=== PATIENT | female | born 1965 | race Caucasian/White ===

== ENCOUNTER 2017-02-04 18:27 | Emergency (ER) | payer BC, OTHER ==
[~2017-02-04] VITALS: Ht 170.2 cm; Wt 105.4 kg
[~2017-02-04 18:27] MED LIST: DILA2TAB4 PO; GABA100C4 PO; LEVO125T3 PO; NAPR250T57 PO; OXYC20 PO; TRAM50TA PO; XANA2TAB2 PO
[2017-02-04 18:37] VITALS: BP 150/89; PULSE 106; RESP 20; RESP 22; TEMP 98.4; O2SAT 97
[2017-02-04] MEDS ORDERED: CYMB30CA PO (18:56)
[2017-02-04] MEDS ORDERED: LEVO125T4 PO (18:56)
[2017-02-04] MEDS ORDERED: REGL5TAB PO (18:56)
[2017-02-04] MEDS ORDERED: OXYC30TA PO (18:56)
[2017-02-04] MEDS ORDERED: XANA2TAB2 PO (18:56)
--- NOTE | 2017-02-04 19:13 | PD ---
HPI Chief Complaint: Fall Time Seen by Provider: 18:58 Travel History International Travel<30 days: No Contact w/Intl Traveler<30days: No Traveled to known affect area: No History of Present Illness HPI Patient's 51-year-old female presenting to the emergency department for evaluation of neck, right shoulder, right rib pain after she fell down 6 steps in her home last night. Patient is unsure if she hit her head. Denies any loss of consciousness. Patient was able to get herself up off the floor after she fell. She states that she closed her eyes and tumbled. Patient states it hurts to take a deep breath, she reports laying in bed all day. Patient reports the pain as a 9 out of 10, she is aching and sore. Patient did drive herself to the emergency department today. PFSH Past Medical History Arthritis: Yes Anxiety: Yes Depression: Yes Heart Rhythm Problems: No Cancer: No Cardiovascular Problems: Yes High Cholesterol: No Congestive Heart Failure: No Diminished Hearing: No Gastrointestinal Disorders: Yes (GALL STONES) GERD: No Genitourinary: No Hiatal Hernia: No Hypertension: Yes Musculoskeletal: Yes (CERVICAL,LUMBAR DAMAGED) Neurologic: No Psychiatric: Yes Reproductive: Yes Respiratory: Yes Thyroid Disease: Yes Ulcer: No ?: Not Menopausal: Yes : 1 Para: 1 Past Surgical History Abdominal Surgery: No Cardiac Surgery: No Ear Surgery: No Endocrine Surgery: No Eye Surgery: No Genitourinary Surgery: No Gynecologic Surgery: Yes (90% OF CERVIX REMOVED) Oral Surgery: No Thoracic Surgery: No Other Surgery: Yes (CERVICAL POLYPS) Social History Alcohol Use: No Tobacco Use: Yes (1 PPD) Substance Use: No Allergies-Medications (Allergen,Severity, Reaction): Coded Allergies: Penicillin (Verified Allergy, Intermediate, 02/04/17) Reported Meds & Prescriptions Reported Meds & Active Scripts Active Reported Reglan (Metoclopramide HCl) 5 Mg Tab 5 Mg PO TIDAC Cymbalta DR (Duloxetine HCl) 30 Mg Capdr 30 Mg PO DAILY Oxycodone (Oxycodone HCl) 30 Mg Tab 30 Mg PO Q6HR Levothyroxine (Levothyroxine Sodium) 125 Mcg Tab 125 Mcg PO DAILY Xanax (Alprazolam) 2 Mg Tab 2 Mg PO BID Review of Systems Except as stated in HPI: all other systems reviewed are Neg Musculoskeletal: Positive: Myalgias, Arthralgias, Pain Neurologic: No: Weakness, Dizziness, Syncope, Change in Mentation, Paresthesia , Sensory Disturbance Physical Exam Narrative GENERAL: Obese, well-developed, well-nourished, alert female. SKIN: Focused skin assessment warm/dry. HEAD: Atraumatic. Normocephalic. EYES: Pupils equal and round. No scleral icterus. No injection or drainage. ENT: No nasal bleeding or discharge. Mucous membranes pink and moist. NECK: Trachea midline. No JVD. CARDIOVASCULAR: Regular rate and rhythm. No murmur appreciated. RESPIRATORY: No accessory muscle use. Clear to auscultation. Breath sounds equal bilaterally. GASTROINTESTINAL: Abdomen soft, non-tender, nondistended. Hepatic and splenic margins not palpable. MUSCULOSKELETAL: No obvious deformities. No clubbing. No cyanosis. No edema. Tenderness to palpation on right lower anterior rib, tenderness to palpation paraspinal musculature in the cervical region on the right side. Full range of motion in all 4 extremities. Patient is neurovascularly intact. NEUROLOGICAL: Awake and alert. No obvious cranial nerve deficits. Motor grossly within normal limits. Normal speech. PSYCHIATRIC: Appropriate mood and affect; insight and judgment normal. Data Data Last Documented VS Vital Signs Date Time Temp Pulse Resp B/P Pulse Ox O2 Delivery O2 Flow Rate FiO2 02/04/17 18:37 98.4 106 20 150/89 97 Orders Chest, Pa & Lat (02/04/17 ) Ct Cerv Spine W/O Contrast (02/04/17 ) Ct Brain W/O Iv Contrast(Rout) (02/04/17 ) Shoulder, Complete (>2vws) (02/04/17 ) Ketorolac Inj (Toradol Inj) (02/04/17 20:30) Dexamethasone Inj (Decadron Inj) (02/04/17 20:30) MDM Medical Decision Making Medical Screen Exam Complete: Yes Emergency Medical Condition: Yes Interpretation(s) Last Impressions Shoulder X-Ray 02/04/17 0000 Signed Impressions: Service Date/Time: Saturday, February 04, 2017 19:21 - CONCLUSION: Normal right shoulder radiographs. Latrell Borges MD Head CT 02/04/17 0000 Signed Impressions: Service Date/Time: Saturday, February 04, 2017 19:29 - CONCLUSION: Negative noncontrast head CT. Latrell Borges MD Chest X-Ray 02/04/17 0000 Signed Impressions: Service Date/Time: Saturday, February 04, 2017 19:17 - CONCLUSION: No evidence of acute cardiopulmonary disease. Latrell Borges MD Cervical Spine CT 02/04/17 0000 Signed Impressions: Service Date/Time: Saturday, February 04, 2017 19:29 - CONCLUSION: 1. No fracture or subluxation of the cervical spine. 2. Moderate size, age-indeterminate posterior disc protrusion at C6/C7 causing moderate spinal stenosis. Latrell Borges MD Vital Signs Date Time Temp Pulse Resp B/P Pulse Ox O2 Delivery O2 Flow Rate FiO2 02/04/17 18:37 98.4 106 20 150/89 97 Differential Diagnosis Fracture versus sprain versus strain versus discogenic pain versus other Narrative Course Patient is a 51-year-old female presenting to the emergency department in a private vehicle that she drove herself for evaluation of pain to her right shoulder, right rib cage, neck. Patient takes oxycodone 30 mg 4 times daily, she's been taking this as she normally would. Imaging ordered and pending. Patient is neurologically intact. CT scan of the brain is normal CT scan of the cervical spine shows no fracture or subluxation at this cervical spine, moderate size age indeterminate posterior disc protrusion at C6 to C7 causing moderate spinal stenosis. Discussed with my attending physician, patient would benefit from anti-inflammatory medication and a short course of steroids. She needs to follow up with her primary doctor. Confirmed with patient that she doesn't fact have a primary doctor to follow-up with. No neurological signs at this time. Patient states that she cannot take anti- inflammatories because of GI upset, she states that meloxicam cause her to have tingling feeling in her legs. She will be given dose of Toradol now. Patient verbalizes understanding of follow-up instructions. Patient is stable for discharge. Diagnosis Primary Impression: Fall (on) (from) other stairs and steps, initial encounter Additional Impressions: Muscle strain Muscle spasm Shoulder pain Qualified Code: M25.511 - Right shoulder pain, unspecified chronicity Referrals: Primary Care Physician Patient Instructions: General Instructions, Muscle Spasm (ED), Muscle Strain ( GEN) Additional Instructions: Follow-up with her primary doctor Medications as directed Return to emergency department for any new or worsening symptoms Avoid bed rest, avoid exacerbating activities, apply warm heat to affected areas Med/Other Pt SpecificInfo: Prescription(s) given Scripts Prednisone 50 Mg Tab50 Mg PO DAILY #5 TAB Ref 0 Prov:Kim Campbell 02/04/17 Disposition: 01 DISCHARGE HOME Condition: Stable Kim Campbell Feb 04, 2017 19:13
--- NOTE | 2017-02-04 19:30 | RADHPO ---
EXAM DATE/TIME: 02/04/2017 19:17 [facility] COMPARISON: No previous studies available for comparison. INDICATIONS : Chest and rib pain post fall. MEDICAL HISTORY : None. SURGICAL HISTORY : None. ENCOUNTER: Initial ACUITY: 1 day PAIN SCORE: 10/10 LOCATION: Bilateral chest FINDINGS: PA and lateral views of the chest demonstrate the lungs to be symmetrically aerated without evidence of mass, infiltrate or effusion. The cardiomediastinal contours are unremarkable. Osseous structure s are intact. CONCLUSION: No evidence of acute cardiopulmonary disease. Latrell Borges MD on February 04, 2017 at 19:27 Board Certified Radiologist. This report was verified electronically.
--- NOTE | 2017-02-04 19:39 | RADHPO ---
EXAM DATE/TIME: 02/04/2017 19:21 [facility] COMPARISON: No previous studies available for comparison. INDICATIONS : Right shoulder pain post fall. MEDICAL HISTORY : None. SURGICAL HISTORY : None. ENCOUNTER: Initial ACUITY: 1 day PAIN SCORE: 10/10 LOCATION: Right shoulder FINDINGS: Multiple view examination of the right shoulder demonstrates no evidence of fracture or dislocation. The glenohumeral and acromioclavicular joints are maintained. There is normal range of motion betwe en internal and external rotation. Bony mineralization is normal. CONCLUSION: Normal right shoulder radiographs. Latrell Borges MD on February 04, 2017 at 19:36 Board Certified Radiologist. This report was verified electronically.
--- NOTE | 2017-02-04 19:53 | RADHPO ---
EXAM DATE/TIME: 02/04/2017 19:29 [facility] COMPARISON: No previous studies available for comparison. INDICATIONS : Fall last night, cephalgia and right neck pain. RADIATION DOSE: 65.95 CTDIvol (mGy) MEDICAL HISTORY : Hypertension. SURGICAL HISTORY : None. ENCOUNTER: Initial ACUITY: 2 days PAIN SCALE: 5/10 LOCATION: Bilateral cranial TECHNIQUE: Multiple contiguous axial images were obtained of the head. Using automated exposure control and adj ustment of the mA and/or kV according to patient size, radiation dose was kept as low as reasonably a chievable to obtain optimal diagnostic quality images. FINDINGS: CEREBRUM: The ventricles are normal for age. No evidence of midline shift, mass lesion, hemorrhage or acute in farction. No extra-axial fluid collections are seen. POSTERIOR FOSSA: The cerebellum and brainstem are intact. The 4th ventricle is midline. The cerebellopontine angle i s unremarkable. EXTRACRANIAL: The visualized portion of the orbits is intact. SKULL: The calvaria is intact. No evidence of skull fracture. CONCLUSION: Negative noncontrast head CT. Latrell Borges MD on February 04, 2017 at 19:50 Board Certified Radiologist. This report was verified electronically.
--- NOTE | 2017-02-04 20:00 | RADHPO ---
EXAM DATE/TIME: 02/04/2017 19:29 [facility] COMPARISON: No previous studies available for comparison. INDICATIONS : Fall last night, cephalgia and right neck pain. RADIATION DOSE: 35.18 CTDIvol (mGy) MEDICAL HISTORY : Hypertension. SURGICAL HISTORY : None. ENCOUNTER: Initial ACUITY: 2 days PAIN SCALE: 7/10 LOCATION: Right neck TECHNIQUE: Volumetric scanning of the cervical spine was performed. Multiplanar reconstructions in the sagittal, coronal and oblique axial planes were performed. Using automated exposure control and adjustment o f the mA and/or kV according to patient size, radiation dose was kept as low as reasonably achievable to obtain optimal diagnostic quality images. FINDINGS: VERTEBRAE: Normal vertebral body height. ALIGNMENT: No evidence of subluxation. C2-C3: The bony spinal canal is normal in size. No evidence of disc bulge or herniation. The neural forami na are bilaterally patent. C3-C4: The bony spinal canal is normal in size. No evidence of disc bulge or herniation. The neural forami na are bilaterally patent. C4-C5: The bony spinal canal is normal in size. No evidence of disc bulge or herniation. The neural forami na are bilaterally patent. C5-C6: The disc has mild loss of height. There is mild bulging of the disc annulus. No significant foraminal or spinal stenosis demonstrated. C6-C7: Moderate-sized, age-indeterminate posterior disc protrusion causing moderate spinal stenosis and prob ably short segment flattening of the cord. No significant foraminal stenosis demonstrated. C7-T1: The bony spinal canal is normal in size. No evidence of disc bulge or herniation. The neural forami na are bilaterally patent. CONCLUSION: 1. No fracture or subluxation of the cervical spine. 2. Moderate size, age-indeterminate posterior disc protrusion at C6/C7 causing moderate spinal stenos is. Latrell Borges MD on February 04, 2017 at 19:56 Board Certified Radiologist. This report was verified electronically.
[2017-02-04] MEDS ORDERED: KETOROLAC TROMETHAMINE 60 MG/2 ML (IM) VIAL IM ONE (20:30)
[2017-02-04] MEDS ORDERED: DEXAMETHASONE SOD PHOS 20 MG/5 ML VIAL IM ONE (20:30)
[2017-02-04] MEDS ORDERED: PRED50 PO (20:32)
== END 2017-02-04 20:45 | disposition home or self-care (01) ==
LOC: PHEFT 18:27
DX: S16.1XXA Strain of muscle, fascia and tendon at neck level, initial encounter (principal); M62.838 Other muscle spasm; M25.511 Pain in right shoulder; R07.81 Pleurodynia; I10 Essential (primary) hypertension; E07.9 Disorder of thyroid, unspecified; F17.200 Nicotine dependence, unspecified, uncomplicated; W10.9XXA Fall (on) (from) unspecified stairs and steps, initial encounter; Z87.39 Personal history of other diseases of the musculoskeletal system and connective tissue; Z86.59 Personal history of other mental and behavioral disorders; Z86.79 Personal history of other diseases of the circulatory system; Z87.19 Personal history of other diseases of the digestive system; Z87.42 Personal history of other diseases of the female genital tract; Z87.09 Personal history of other diseases of the respiratory system
CPT/HCPCS: 70450; 71020; 72125; 73030; 96372; 99284; J1100; J1885